=== PATIENT | male | born 1945 | race Caucasian/White ===

== ENCOUNTER 2020-11-18 07:32 | Inpatient (IN) ==
[2020-11-18] MEDS: Chlorhexidine Rinse 15 ML MOUTHWASH MM SCH ×3 (06:50→19:56)
[~2020-11-18 07:32] MED LIST: *HR* Etomidate 20 MG/10 ML AMPUL IVP ONE; *HR* FentaNYL (PF) 1,000 MCG/20 ML VIAL ONE; *HR* Midazolam HCl 5 MG/5 ML VIAL IVP ONE; *HR* PHENYLEPHRINE 1,000 MCG/10 ML SYRINGE IVP ONE; *HR* Rocuronium Bromide 50 MG/5 ML VIAL ONE; Aspirin 81 MG TAB.CHEW ONE; Aspirin 81 MG TAB.CHEW PO ONE; Calcium Gluconate 1,000 MG/10 ML VIAL ONE; CeFAZolin Syr 2,000MG/20 ML 2,000 MG/20 ML SYRINGE IVPB ONE; Chlorhexidine Rinse 15 ML MOUTHWASH ONE; Dextrose 50 % in Water (Vial) 30 ML, Sodium Bicarbonate 20 MEQ, Lidocaine 1% 5 ML, Insu... TH ONE; Dextrose 50 % in Water (Vial) 30 ML, Sodium Bicarbonate 20 MEQ, Potassium Chloride 15 M... TH ONE; EPINEPHrine 1 MG/ML VIAL ONE; Famotidine 20 MG/2 ML VIAL ONE; Heparin 15,000 UNIT in 0.9 % Sodium Chloride 500 ML IV ONE; Insulin Human Regular 100 UNIT in 0.9 % Sodium Chloride 100 ML IV PRN; NiCARdipine 2.5 MG/10 ML Syringe IVPB ONE; Norepinephrine 4 MG in 0.9 % Sodium Chloride 250 ML IVC PRN; Protamine Sulfate 250 MG/25 ML VIAL IVP ONE; Ringers Solution, Lactated 1,000 ML IVC SCH; Tranexamic Acid 1,000 MG/10 ML VIAL ONE
[2020-11-18 08:16] LABS: ABG Base Excess 1 mEq/L (-2 to 3); ABG Chloride 102 mEq/L (98-107); ABG Glucose 193 mg/dL (60-95); ABG HCO3 29 mEq/L (21-27); ABG Ionized Calcium 1.17 mmol/L (1.15-1.35); ABG Oxygen Saturation 100 % (95-98); ABG PCO2 58 mmHg (35-45); ABG PO2 206 mmHg (85-104); ABG TCO2 31 mEq/L (20-26)
[2020-11-18] MEDS ORDERED: Tranexamic Acid 1,000 MG/10 ML VIAL ONE (09:43)
[2020-11-18 09:46] LABS: ABG Base Excess -1 mEq/L (-2 to 3); ABG Chloride 101 mEq/L (98-107); ABG Glucose 209 mg/dL (60-95); ABG HCO3 24 mEq/L (21-27); ABG Ionized Calcium 1.13 mmol/L (1.15-1.35); ABG Oxygen Saturation 100 % (95-98); ABG PCO2 40 mmHg (35-45); ABG PH 7.39 pH Units (7.32-7.45); ABG PO2 234 mmHg (85-104); ABG TCO2 25 mEq/L (20-26)
[2020-11-18 10:29] LABS: ABG Base Excess 1 mEq/L (-2 to 3); ABG Chloride 100 mEq/L (98-107); ABG Glucose 238 mg/dL (60-95); ABG HCO3 25 mEq/L (21-27); ABG Ionized Calcium 0.91 mmol/L (1.15-1.35); ABG PCO2 38 mmHg (35-45); ABG PH 7.43 pH Units (7.32-7.45); ABG PO2 > 630 mmHg (85-104); ABG TCO2 27 mEq/L (20-26)
[2020-11-18 10:51] LABS: ABG Base Excess 1 mEq/L (-2 to 3); ABG Chloride 100 mEq/L (98-107); ABG Glucose 213 mg/dL (60-95); ABG HCO3 26 mEq/L (21-27); ABG Ionized Calcium 0.96 mmol/L (1.15-1.35); ABG PCO2 39 mmHg (35-45); ABG PH 7.43 pH Units (7.32-7.45); ABG PO2 > 630 mmHg (85-104); ABG TCO2 27 mEq/L (20-26)
[2020-11-18 11:23] LABS: ABG Base Excess 1 mEq/L (-2 to 3); ABG Chloride 100 mEq/L (98-107); ABG Glucose 161 mg/dL (60-95); ABG HCO3 26 mEq/L (21-27); ABG Ionized Calcium 1.07 mmol/L (1.15-1.35); ABG Oxygen Saturation 100 % (95-98); ABG PCO2 37 mmHg (35-45); ABG PH 7.44 pH Units (7.32-7.45); ABG PO2 600 mmHg (85-104); ABG TCO2 27 mEq/L (20-26)
[2020-11-18 11:48] LABS: ABG Base Excess -1 mEq/L (-2 to 3); ABG Chloride 100 mEq/L (98-107); ABG Glucose 147 mg/dL (60-95); ABG HCO3 23 mEq/L (21-27); ABG Ionized Calcium 1.43 mmol/L (1.15-1.35); ABG Oxygen Saturation 100 % (95-98); ABG PCO2 34 mmHg (35-45); ABG PH 7.45 pH Units (7.32-7.45); ABG PO2 212 mmHg (85-104); ABG TCO2 24 mEq/L (20-26)
[2020-11-18] MEDS ORDERED: Albumin Human 5% 12.5 GM/250 ML IV.SOLN ONE (11:51)
[2020-11-18] MEDS ORDERED: *HR* Dextrose 50 % in Water (Vial) 50 ML VIAL IVP PRN (11:57)
[2020-11-18] MEDS ORDERED: Insulin Regular, Human 100 UNIT/ML IV PRN (11:57)
[2020-11-18] MEDS ORDERED: Potassium Chloride 40 MEQ/200 ML BAG IVPB PRN (11:57)
[2020-11-18] MEDS ORDERED: Albumin Human 5% 12.5 GM/250 ML IV.SOLN IVPB PRN (11:59)
[2020-11-18] MEDS ORDERED: Acetaminophen 325 MG TABLET PO PRN (11:59)
[2020-11-18] MEDS ORDERED: Acetaminophen 650 MG RECTAL SUPP RC PRN (11:59)
[2020-11-18] MEDS ORDERED: Norepinephrine 4 MG/254 ML IV.SOLN IVC SCH (12:00)
[2020-11-18] MEDS ORDERED: Insulin Human Regular 100 UNIT in 0.9 % Sodium Chloride 100 ML IVC SCH (12:00)
[2020-11-18 12:45] LABS: ABG Base Excess 0 mEq/L (-2 to 3); ABG HCO3 24 mEq/L (21-27); ABG Oxygen Saturation 98 % (95-98); ABG PCO2 35 mmHg (35-45); ABG PH 7.44 pH Units (7.32-7.45); ABG PO2 97 mmHg (85-104); ABG TCO2 25 mEq/L (20-26); Blood Gas Modality ASSIST CONTROL; Blood Gas VT 650 cc
[2020-11-18 12:52] LABS: Basophils % 0.2 %; Immature Granulocytes % 0.6 % (0-4); Mean Corpuscular Volume 93.1 fL (83.0-100.0)
[2020-11-18 12:54] LABS: Eosinophils # 0.1 K/mcL (0.0-0.6); Eosinophils % 1.1 %; Hematocrit 31.1 % (37.5-50.1); Hemoglobin 10.8 g/dL (12.9-16.9); Immature Platelets 2.1 % (1.1-6.1); Lymphocytes # 2.1 K/mcL (0.6-4.6); Lymphocytes % 18.6 %; Mean Corpuscular HGB Conc 34.7 g/dL (31.6-35.5); Mean Corpuscular Hemoglobin 32.3 pg (28.0-33.3); Mean Platelet Volume 9.1 fL (9.4-12.4); Monocytes # 0.4 K/mcL (0.0-1.3); Monocytes % 3.6 %; Neutrophils # 8.4 K/mcL (1.6-8.9); Platelet Count 104 K/mcL (140-400); Red Blood Count 3.34 M/mcL (4.19-5.50); Red Cell Distribution Width 11.7 % (11.5-14.5); Segmented Neutrophils % 75.9 %
[2020-11-18 13:10] LABS: Activated Partial Thrombo Time 28.4 Seconds (26.0-36.0); BUN/Creatinine Ratio 24 (6-26); Blood Urea Nitrogen 15 mg/dL (8-23); Calcium 8.6 mg/dL (8.6-10.3); Carbon Dioxide 25 mEq/L (23-29); Chloride 108 mEq/L (98-107); Glucose 125 mg/dL (70-105); Magnesium 2.5 mg/dL (1.6-2.6); Osmolality,Calculated 286 (280-300); Potassium 3.7 mEq/L (3.5-5.1); Sodium 137 mEq/L (136-145); eGFR For African Americans > 60 (> 60); eGFR For Non-African Americans > 60 (> 60)
[2020-11-18 13:18] LABS: INR 1.8
[2020-11-18 13:19] LABS: Prothrombin Time 20.4 Seconds (9.4-12.1); White Blood Count 11.1 K/mcL (4.3-11.1)
[2020-11-18] MEDS ORDERED: Calcium Gluconate 1gm/50mL 1 GM/50 ML BAG IVPB PRN (13:28)
[2020-11-18] MEDS: Pantoprazole 40 MG VIAL IVP SCH (14:57)
[2020-11-18] MEDS: *HR* FentaNYL (PF) 100 MCG/2 ML VIAL IVP PRN ×2 (14:57→23:16)
[2020-11-18] MEDS: 0.9 % Sodium Chloride w KCl 20 MEQ/1,000 ML MLS IVC SCH (14:58)
[2020-11-18] MEDS: CeFAZolin 2 GM/120 ML BAG IVPB SCH ×2 (14:58→21:27)
[2020-11-18 16:59] LABS: ABG Base Excess 0 mEq/L (-2 to 3); ABG HCO3 24 mEq/L (21-27); ABG Oxygen Saturation 99 % (95-98); ABG PCO2 38 mmHg (35-45); ABG PH 7.42 pH Units (7.32-7.45); ABG PO2 153 mmHg (85-104); ABG TCO2 25 mEq/L (20-26); Blood Gas VT 550 cc
[2020-11-18] MEDS ORDERED: Tranexamic Acid 1,000 MG/10 ML VIAL IR ONE (17:20)
[2020-11-18] MEDS ORDERED: Mannitol 25% vial 12.5 GM/50 ML VIAL IVPB ONE (17:20)
[2020-11-18] MEDS ORDERED: *HR* Heparin 10,000 UNIT/10 ML VIAL IR ONE (17:20)
[2020-11-18] MEDS ORDERED: *HR* Phenylephrine 10 MG/ML VIAL IVC ONE (17:20)
[2020-11-18] MEDS ORDERED: *HR* Magnesium Sulfate 2 GM/50 ML PIGGYBACK IVPB ONE (17:20)
[2020-11-18] MEDS ORDERED: Albumin Human 25% 25 GM/100 ML IV.SOLN IVPB ONE (17:20)
[2020-11-18] MEDS ORDERED: Lidocaine 2% Syringe 100 MG/5 ML IVP ONE (17:20)
[2020-11-18] MEDS ORDERED: Ondansetron 4 MG/2 ML VIAL IVP PRN (17:53)
[2020-11-18] MEDS ORDERED: Ondansetron 4 MG/2 ML VIAL ONE (17:55)
[2020-11-18 18:02] LABS: ABG Base Excess 0 mEq/L (-2 to 3); ABG HCO3 25 mEq/L (21-27); ABG Oxygen Saturation 99 % (95-98); ABG PCO2 41 mmHg (35-45); ABG PO2 116 mmHg (85-104); ABG TCO2 26 mEq/L (20-26); Blood Gas Modality BIVENT
[2020-11-18] MEDS: niCARdipine 20 MG/200 ML MLS IVC SCH ×4 (19:15→22:57)
[2020-11-18] MEDS: *HR* OxyCODONE/APAP 5/325 TABLET PO PRN (19:56)
[2020-11-18 20:04] LABS: ABG Base Excess 1 mEq/L (-2 to 3); ABG HCO3 26 mEq/L (21-27); ABG Oxygen Saturation 97 % (95-98); ABG PCO2 43 mmHg (35-45); ABG PH 7.39 pH Units (7.32-7.45); ABG PO2 96 mmHg (85-104); ABG TCO2 27 mEq/L (20-26)
[2020-11-19] MEDS: niCARdipine 20 MG/200 ML MLS IVC SCH ×2 (00:11→05:49)
[2020-11-19] MEDS: *HR* OxyCODONE/APAP 5/325 TABLET PO PRN ×4 (03:27→22:56)
[2020-11-19 04:08] LABS: Basophils % 0.1 %; Eosinophils % 0.2 %; Hematocrit 36.3 % (37.5-50.1); Immature Granulocytes % 0.4 % (0-4); Lymphocytes % 10.6 %; Mean Corpuscular HGB Conc 34.4 g/dL (31.6-35.5); Mean Corpuscular Hemoglobin 32.7 pg (28.0-33.3); Mean Platelet Volume 9.2 fL (9.4-12.4); Monocytes # 0.6 K/mcL (0.0-1.3); Monocytes % 6.6 %; Platelet Count 130 K/mcL (140-400); Red Blood Count 3.82 M/mcL (4.19-5.50); Red Cell Distribution Width 12.3 % (11.5-14.5); Segmented Neutrophils % 82.1 %; White Blood Count 9.7 K/mcL (4.3-11.1)
[2020-11-19 04:12] LABS: Hemoglobin 12.5 g/dL (12.9-16.9)
[2020-11-19 04:20] LABS: INR 1.3; Prothrombin Time 14.9 Seconds (9.4-12.1)
[2020-11-19 04:25] LABS: BUN/Creatinine Ratio 23 (6-26); Blood Urea Nitrogen 16 mg/dL (8-23); Carbon Dioxide 23 mEq/L (23-29); Chloride 107 mEq/L (98-107); Glucose 131 mg/dL (70-105); Magnesium 1.9 mg/dL (1.6-2.6); Osmolality,Calculated 287 (280-300); Potassium 4.4 mEq/L (3.5-5.1); Sodium 137 mEq/L (136-145); eGFR For African Americans > 60 (> 60); eGFR For Non-African Americans > 60 (> 60)
[2020-11-19] MEDS: *HR* FentaNYL (PF) 100 MCG/2 ML VIAL IVP PRN (04:40)
[2020-11-19] MEDS: Pantoprazole 40 MG VIAL IVP SCH (08:55)
[2020-11-19] MEDS: Chlorhexidine Rinse 15 ML MOUTHWASH MM SCH ×2 (08:55→20:26)
[2020-11-19] MEDS: 0.9 % Sodium Chloride w KCl 20 MEQ/1,000 ML MLS IVC SCH (08:56)
[2020-11-19] MEDS ORDERED: Furosemide 20 MG/2 ML VIAL IVP SCH (09:00)
[2020-11-19] MEDS ORDERED: Insulin Human Regular 100 UNIT in 0.9 % Sodium Chloride 100 ML IVC SCH (11:39)
[2020-11-19] MEDS ORDERED: D5% in Water 1,000 ML IVC PRN (11:39)
[2020-11-19] MEDS ORDERED: Ondansetron 4 MG/2 ML VIAL IVP PRN (11:39)
[2020-11-19] MEDS ORDERED: Insulin Regular, Human 100 UNIT/ML IV PRN (11:39)
[2020-11-19] MEDS ORDERED: *HR* Dextrose 50 % in Water (Vial) 50 ML VIAL IVP PRN (11:39)
[2020-11-19] MEDS ORDERED: Dextrose Gel 15 GM/37.5 ML TUBE PO PRN ×2 (11:39)
[2020-11-19] MEDS ORDERED: *HR* FentaNYL (PF) 100 MCG/2 ML VIAL IVP PRN (11:59)
[2020-11-19] MEDS: Insulin LISPRO 300 UNITS/3 ML VIAL SUBQ SCH ×3 (13:20→20:22)
[2020-11-19] MEDS: *HR* Heparin 5,000 UNIT/ML VIAL SQ SCH ×2 (14:30→16:41)
[2020-11-19] MEDS: carvediloL 6.25 MG TABLET PO SCH (16:47)
[2020-11-19] MEDS: *HR* Metformin 500 MG TABLET PO SCH (16:47)
[2020-11-19] MEDS: Furosemide 20 MG/2 ML VIAL IVP SCH (20:27)
[2020-11-20] MEDS: *HR* Heparin 5,000 UNIT/ML VIAL SQ SCH ×2 (04:49→17:07)
[2020-11-20 05:41] LABS: Basophils % 0.2 %; Eosinophils # 0.1 K/mcL (0.0-0.6); Eosinophils % 0.4 %; Hematocrit 35.2 % (37.5-50.1); Hemoglobin 11.9 g/dL (12.9-16.9); Immature Granulocytes % 0.4 % (0-4); Lymphocytes # 1.7 K/mcL (0.6-4.6); Lymphocytes % 14.7 %; Mean Corpuscular HGB Conc 33.8 g/dL (31.6-35.5); Mean Corpuscular Hemoglobin 33.2 pg (28.0-33.3); Mean Corpuscular Volume 98.3 fL (83.0-100.0); Mean Platelet Volume 9.6 fL (9.4-12.4); Monocytes # 1.2 K/mcL (0.0-1.3); Monocytes % 10.7 %; Neutrophils # 8.3 K/mcL (1.6-8.9); Platelet Count 124 K/mcL (140-400); Red Blood Count 3.58 M/mcL (4.19-5.50); Red Cell Distribution Width 12.3 % (11.5-14.5); Segmented Neutrophils % 73.6 %; White Blood Count 11.3 K/mcL (4.3-11.1)
[2020-11-20 06:05] LABS: BUN/Creatinine Ratio 31 (6-26); Blood Urea Nitrogen 23 mg/dL (8-23); Calcium 8.4 mg/dL (8.6-10.3); Carbon Dioxide 27 mEq/L (23-29); Chloride 99 mEq/L (98-107); Glucose 213 mg/dL (70-105); Osmolality,Calculated 284 (280-300); Potassium 4.9 mEq/L (3.5-5.1); Sodium 132 mEq/L (136-145); eGFR For African Americans > 60 (> 60); eGFR For Non-African Americans > 60 (> 60)
[2020-11-20] MEDS: carvediloL 6.25 MG TABLET PO SCH ×2 (07:42→17:06)
[2020-11-20] MEDS: Aspirin Enteric Coated 81 MG Tablet PO SCH (07:42)
[2020-11-20] MEDS: *HR* Pioglitazone 15 MG TABLET PO SCH (07:42)
[2020-11-20] MEDS: *HR* OxyCODONE/APAP 5/325 TABLET PO PRN ×2 (07:43→20:38)
[2020-11-20] MEDS: *HR* Metformin 500 MG TABLET PO SCH ×2 (07:43→17:07)
[2020-11-20] MEDS: Pantoprazole 40 MG VIAL IVP SCH (07:44)
[2020-11-20] MEDS: Chlorhexidine Rinse 15 ML MOUTHWASH MM SCH ×2 (07:44→20:38)
[2020-11-20] MEDS: Furosemide 20 MG/2 ML VIAL IVP SCH ×2 (07:44→20:39)
[2020-11-20] MEDS: Insulin LISPRO 300 UNITS/3 ML VIAL SUBQ SCH ×4 (07:45→20:39)
[2020-11-20] MEDS ORDERED: Aspirin Enteric Coated 81 MG Tablet PO SCH (09:00)
[2020-11-21] MEDS: *HR* Heparin 5,000 UNIT/ML VIAL SQ SCH ×2 (07:05→17:23)
[2020-11-21] MEDS: Acetaminophen 325 MG TABLET PO PRN (07:51)
[2020-11-21] MEDS: *HR* Metformin 500 MG TABLET PO SCH ×2 (07:51→17:19)
[2020-11-21] MEDS: Aspirin Enteric Coated 81 MG Tablet PO SCH (07:51)
[2020-11-21] MEDS: lisinopriL 20 MG TABLET PO SCH (07:51)
[2020-11-21] MEDS: *HR* Pioglitazone 15 MG TABLET PO SCH (07:52)
[2020-11-21] MEDS: carvediloL 6.25 MG TABLET PO SCH ×2 (07:52→17:17)
[2020-11-21] MEDS: Chlorhexidine Rinse 15 ML MOUTHWASH MM SCH ×2 (07:52→19:52)
[2020-11-21] MEDS: Pantoprazole 40 MG VIAL IVP SCH (07:54)
[2020-11-21] MEDS: Furosemide 20 MG/2 ML VIAL IVP SCH ×2 (07:54→19:53)
[2020-11-21] MEDS: Insulin LISPRO 300 UNITS/3 ML VIAL SUBQ SCH ×4 (07:55→20:09)
[2020-11-21] MEDS: *HR* OxyCODONE/APAP 5/325 TABLET PO PRN (19:28)
[2020-11-22] MEDS: *HR* OxyCODONE/APAP 5/325 TABLET PO PRN (03:55)
[2020-11-22] MEDS: *HR* Heparin 5,000 UNIT/ML VIAL SQ SCH ×2 (06:23→17:14)
[2020-11-22] MEDS: Insulin LISPRO 300 UNITS/3 ML VIAL SUBQ SCH ×4 (07:40→21:00)
[2020-11-22] MEDS: Chlorhexidine Rinse 15 ML MOUTHWASH MM SCH ×2 (07:41→19:34)
[2020-11-22] MEDS: lisinopriL 20 MG TABLET PO SCH (07:41)
[2020-11-22] MEDS: *HR* Pioglitazone 15 MG TABLET PO SCH (07:41)
[2020-11-22] MEDS: Pantoprazole 40 MG VIAL IVP SCH (07:41)
[2020-11-22] MEDS: Aspirin Enteric Coated 81 MG Tablet PO SCH (07:41)
[2020-11-22] MEDS: *HR* Metformin 500 MG TABLET PO SCH ×2 (07:41→17:14)
[2020-11-22] MEDS: carvediloL 6.25 MG TABLET PO SCH ×2 (07:41→17:14)
[2020-11-23] MEDS: *HR* Heparin 5,000 UNIT/ML VIAL SQ SCH ×2 (06:15→17:17)
[2020-11-23] MEDS: *HR* Metformin 500 MG TABLET PO SCH ×2 (07:15→17:16)
[2020-11-23] MEDS: *HR* Pioglitazone 15 MG TABLET PO SCH (07:16)
[2020-11-23] MEDS: lisinopriL 20 MG TABLET PO SCH (07:16)
[2020-11-23] MEDS: Aspirin Enteric Coated 81 MG Tablet PO SCH (07:16)
[2020-11-23] MEDS: carvediloL 6.25 MG TABLET PO SCH ×2 (07:16→17:16)
[2020-11-23] MEDS: Chlorhexidine Rinse 15 ML MOUTHWASH MM SCH ×2 (07:16→21:21)
[2020-11-23] MEDS: Pantoprazole 40 MG VIAL IVP SCH (07:17)
[2020-11-23] MEDS: Insulin LISPRO 300 UNITS/3 ML VIAL SUBQ SCH ×4 (07:19→20:43)
[2020-11-23] MEDS ORDERED: Albumin Human 5% 12.5 GM/250 ML IV.SOLN IVPB ONE ×2 (10:00→11:30)
[2020-11-23] MEDS: Acetaminophen 325 MG TABLET PO PRN (11:44)
[2020-11-23] MEDS ORDERED: Melatonin 3 MG TABLET PO PRN (21:00)
[2020-11-24 02:08] LABS: Basophils % 0.4 %; Eosinophils # 0.4 K/mcL (0.0-0.6); Eosinophils % 3.7 %; Hematocrit 32.8 % (37.5-50.1); Hemoglobin 11.2 g/dL (12.9-16.9); Immature Granulocytes % 0.7 % (0-4); Lymphocytes # 2.6 K/mcL (0.6-4.6); Lymphocytes % 26.1 %; Mean Corpuscular HGB Conc 34.1 g/dL (31.6-35.5); Mean Corpuscular Hemoglobin 32.7 pg (28.0-33.3); Mean Corpuscular Volume 95.6 fL (83.0-100.0); Mean Platelet Volume 8.9 fL (9.4-12.4); Monocytes # 0.9 K/mcL (0.0-1.3); Monocytes % 9.4 %; Neutrophils # 5.9 K/mcL (1.6-8.9); Platelet Count 235 K/mcL (140-400); Red Blood Count 3.43 M/mcL (4.19-5.50); Red Cell Distribution Width 12.3 % (11.5-14.5); Segmented Neutrophils % 59.7 %
[2020-11-24 02:27] LABS: BUN/Creatinine Ratio 31 (6-26); Blood Urea Nitrogen 18 mg/dL (8-23); Calcium 8.3 mg/dL (8.6-10.3); Carbon Dioxide 25 mEq/L (23-29); Chloride 102 mEq/L (98-107); Glucose 173 mg/dL (70-105); Osmolality,Calculated 286 (280-300); Potassium 3.6 mEq/L (3.5-5.1); Sodium 135 mEq/L (136-145); eGFR For African Americans > 60 (> 60); eGFR For Non-African Americans > 60 (> 60)
[2020-11-24] MEDS: *HR* Heparin 5,000 UNIT/ML VIAL SQ SCH (06:10)
[2020-11-24] MEDS: *HR* Pioglitazone 15 MG TABLET PO SCH (07:07)
[2020-11-24] MEDS: *HR* Metformin 500 MG TABLET PO SCH (07:07)
[2020-11-24] MEDS: lisinopriL 20 MG TABLET PO SCH (07:07)
[2020-11-24] MEDS: carvediloL 6.25 MG TABLET PO SCH (07:07)
[2020-11-24] MEDS: Aspirin Enteric Coated 81 MG Tablet PO SCH (07:08)
[2020-11-24] MEDS: Chlorhexidine Rinse 15 ML MOUTHWASH MM SCH (07:08)
[2020-11-24] MEDS: Insulin LISPRO 300 UNITS/3 ML VIAL SUBQ SCH (07:09)
[2020-11-24 11:16] VITALS: BP 126/72
== END 2020-11-24 12:35 | disposition home or self-care (01) | DRG 229 ==
LOC: SAMDAY 07:32 → ICNU 11:56 → 2NNU 11-19 16:09
PROVIDERS: ADMIT Thoracic Surgery (Cardiothoracic Vascular Surgery); ATTEND Thoracic Surgery (Cardiothoracic Vascular Surgery)